=== PATIENT | female | born 1970 | race Caucasian/White ===

== ENCOUNTER 2017-03-03 14:34 | Emergency (ER) | payer MEDICAID, OTHER ==
--- NOTE | 2017-03-03 15:18 | ERNOTE ---
Abdominal HPI - Narrative Date of Service: 03/03/17 - General Chief Complaint: Abdominal Pain Time Seen by Provider: 03/03/17 14:50 Source: patient Exam Limitations: no limitations - Immun/Allergies/Home Medications Immunizatons: IMMUNIZATION HX Immunizations Up to Date No History of Influenza Vaccine No Hx Pneumococcal Vaccination No Allergies/Adverse Reactions: Allergies No Known Allergies Allergy (Verified 03/03/17 14:44) Home Medications: HOME MEDICATIONS Ibuprofen [Motrin] 400 mg PO Q6H PRN 03/03/17 [Last Taken Unknown] Magnesium Hydroxide [Milk Of Magnesia Mint Flavored] 1 ml PO PRN 03/03/17 [Last Taken Unknown] NK [No Home Medication] 03/03/17 [Last Taken Unknown] - History of Present Illness Narrative: Pt. comes in with c/o band-like upper abdominal pain and bloating for a week. Pt. denies any SOB, CP, NVD, fever, recent illness or injury but does state that she has a hx of constipation and also states that she has not had her period in three months. Pt. denies any discharge but states aht she has had night sweats. and today noted that she had difficulty urinating just prior to arrival and noticed that it is pink as well. Timing of problem is over the past few months. Timing: getting worse Quality: moderate, fullness Activities at Onset: none Modifying Factors - (Improves): Present: other - denies Modifying Factors - (Worsens): Present: other - denies Associated Symptoms: Present: diaphoresis, loss of appetite. Absent: fever/ chills, nausea, vomiting Prior Abdominal Problems: Present: none Prior Treatment: Present: other - antacids no relief. Absent: treated by physician, recently hospitalized, currently on antibiotics Review of Systems - Review of Systems Constitutional: Present: diaphoresis, malaise. Absent: fever, chills, weakness , fatigue, decreased activity level EYE: Present: no symptoms reported ENT: Present: no symptoms reported. Absent: nose congestion, nasal drainage, sore throat Respiratory: Present: no symptoms reported. Absent: shortness of breath, cough , wheezing Cardiology: Present: no symptoms reported. Absent: chest pain, palpitations, edema Gastrointestinal/Abdominal: Present: constipation, abdominal pain, eating less, drinking less. Absent: nausea, vomiting, diarrhea Genitourinary: Present: pain, dysuria, hematuria, decreased urinary output Musculoskeletal: Present: back pain - B flank. Absent: joint pain Skin: Present: no symptoms reported. Absent: rash, change in hair/nails Neurological: Present: no symptoms reported. Absent: headache, dizziness/light- headedness, numbness, tingling Endocrine: Present: flushing, unexplained weight loss. Absent: intolerance to cold, increased hunger Hematologic/Lymphatic: Present: no symptoms reported Psych: Present: no symptoms reported All Other Systems: All systems neg except as marked - Patient's Past Medical History Patient History - Medical: No pertinent hx Patient History - Cardiac/Respiratory: No pertinent hx Patient History - Cancer: No Hx of Cancer Patient History - Surgical Procedures: Patient History - Other: None - Social History Living Situations: home Psych History: No pertinent hx Alcohol Use: none Drug Use: none - Immunizations Immunizations Up to Date: No Hx Pneumococcal Vaccination: No History of Influenza Vaccine: No Physical Exam - Physical Exam General Appearance: Present: wd/wn, alert, no apparent distress Head Exam: Present: normal inspection, no evidence of injury Eye Exam: Normal inspection: bilateral, PERRL: bilateral, EOMI: bilateral Ears, Nose, Throat: Present: normal ENT inspection, normal pharynx Neck: Present: normal inspection, nontender, supple, full range of motion. Absent: lymphadenopathy (R), lymphadenopathy (L) Respiratory: Present: no respiratory distress, normal breath sounds, no accessory muscle use, chest nontender, lungs clear Cardiovascular/Chest: Present: regular rate, rhythm, no murmur, normal peripheral pulses Gastrointestinal/Abdominal: Present: normal bowel sounds, no organomegaly, tenderness - BUQ, distended - mild not firm. Absent: rebound, McBurney sign, Obturator sign, Keith sign, Psoas sign, mass, hernia, hepatomegaly Back Exam: Present: normal inspection, normal range of motion, no CVA tenderness , no vertebral tenderness Extremity Exam: Present: normal inspection, non-tender, normal range of motion, no edema Neurological Exam: Present: alert, oriented, normal mood/affect, no motor/ sensory deficits, front desk monitor II-XII nml as tested Skin Exam: Present: normal color, warm/dry. Absent: pallor, skin rash ED Progress - Date and Time Seen: Date and Time: 03/03/17 18:[address] Jayy MENJIVARHC hemoc and he states to get an LDH and Uric acid and if LDH is >300or URic acid >8 then pt. needs emergent workup. 03/03/17 18:[address] Gary and she agrees with plan to transfer pt since LDH is 345 03/03/17 18:40 Discussed with pt. and she would like to have mom drive her to [facility] rather than have Ambulance transport. Discussed risks and had pt. sign AMA 03/03/17 19:[address] Navarrete and he accepts pt. for transfer. - Results and Orders Patient's Lab Results:: I have reviewed the patient's lab results. - Vital Signs Patient's Vital Signs:: I have reviewed the patient's vital signs. Vital Signs: Vital Signs 03/03/17 14:46 Temperature 36.8 C Pulse Rate 102 H Respiratory 16 Rate Blood Pressure 143/90 O2 Sat by Pulse 99 Oximetry - EKG EKG: NSR, nonspecific ST T wave changes EKG read: Reviewed by me EKG Comments: interp by Dr Da Silva - CT/Ultrasound CT/Ultrasound Narrative: CT Abdomen/Pelvis W/O Findings: Exam is limited by noncontrast technique. Lung bases: Images reveal bibasilar dependent atelectasis. ABDOMEN/PELVIS: No evidence of urolithiasis or obstructive uropathy. Limited to assess for renal mass or cyst. Normal course and caliber of the ureters. No bladder calculi. No bladder hematoma. Normal caliber aorta with scattered atherosclerotic changes. There is hepatomegaly with the liver measuring 20 cm in length. There is massive splenomegaly with the spleen measuring 23 cm in length and exhibits mass effect on the left kidney; correlate for a Page kidney. There is pathologic retroperitoneal lymphadenopathy. Atherosclerotic changes are present throughout the normal caliber aorta and branching vessels. No free air. No free fluid. No evidence of bowel obstruction. There is descending colon and sigmoid colon diverticulosis. No evidence of diverticulitis. Small fat- containing umbilical hernia. There are degenerative changes. The exam is otherwise limited by the absence of oral and intravenous contrast. IMPRESSION: No evidence of urolithiasis or obstructive uropathy. Massive splenomegaly with mass effect on the left kidney; correlate for a Page kidney. Pathologic retroperitoneal lymphadenopathy. Correlate for underlying lymphoma. Additional findings and comments are as above. Electronically signed by Wale Knox D.O.. - Progress/Reassessment Chief Complaint: Abdominal Pain Progress:: Unchanged Departure Clinical Impression: Elevated LDH, Splenomegaly, Lymphadenopathy, retroperitoneal, Thrombocytopenia Hematuria Qualifiers: Hematuria type: unspecified type Qualified Code(s): R31.9 - Hematuria, unspecified Anemia Qualifiers: Anemia type: bone marrow failure Bone marrow failure anemia type: unspecified bone marrow failure Qualified Code(s): D61.9 - Aplastic anemia, unspecified - Departure Disposition: [facility] Condition: Serious
[2017-03-03 15:48] LABS: Urine Bilirubin 1 mg/dl (NEGATIVE); Urine Blood 250 /ul (NEGATIVE); Urine Ketone 5 mg/dL (NEGATIVE); Urine Nitrite Negative (NEGATIVE); Urine Protein 30 mg/dL (NEGATIVE); Urine Specific Gravity >=1.030 SP.GR. (1.005-1.010); Urine Urobilinogen Normal (NORMAL); Urine pH 5.5 pH (5.0-7.0)
[2017-03-03 15:54] LABS: ALT 14 U/L (19-67); AST 37 U/L (0-48); Albumin * 3.6 gm/dl (3.4-5.0); Alkaline Phosphatase * 136 U/L (50-170); Amylase * 59 U/L (25-115); Anion Gap 13.8 mmol/L (6.8-13.8); BUN/Creatinine Ratio 8.9 (9.0-21.6); Bilirubin, Total 0.4 mg/dL (0.0-1.1); Blood Urea Nitrogen 10 mg/dL (3-23); Carbon Dioxide 28.5 mmol/L (24-32.6); Chloride 100 mmol/L (97-106); Glucose * 92 mg/dL (70-110); Lipase 160 U/L (73-393); Potassium 4.3 mmol/L (3.4-4.6); Sodium 138 mmol/L (132-142); Total Protein 7.6 gm/dL (6.2-8.2); Troponin I Less than 0.017 ng/ml (0.00-0.10)
[2017-03-03 16:00] LABS: Hematocrit 31.4 % (37.0-47.0); Hemoglobin 9.8 gm/dL (12.5-16.0); Mean Cell Volume 82.4 fl (78-100); Mean Corpuscular Hemoglobin 25.7 pg (27-31); Mean Corpuscular Hgb Conc 31.2 g/dl (32-36); Mean Platelet Volume 8.5 fl (6.0-9.5); Neutrophil # 2.7 K/mm3 (1.3-6.0); Neutrophil % 44.6 % (42-75.0); Platelet Count 119 K/mm3 (150-450); Red Blood Count 3.81 M/mm3 (4.2-5.4); Red Cell Distribution Width 14.9 % (11.5-14.0); White Blood Count 6.1 K/mm3 (4.0-10.5)
[2017-03-03 16:01] LABS: Urine Appearance Cloudy; Urine Bacteria 1+; Urine Color Dark Yellow
[2017-03-03 16:02] LABS: Urine Hyaline Cast 0-5 /LPF
[2017-03-03] MEDS ORDERED: NORMAL SALINE 1,000 ML IV ONE (16:08)
[2017-03-03] MEDS ORDERED: PHENAZOPYRIDINE HCL 100 MG TABLET ONE (16:58)
[2017-03-03 18:05] LABS: Uric Acid 7.1 mg/dL (2.6-7.2)
[2017-03-03] MEDS ORDERED: NORMAL SALINE 1,000 ML IV PRN (18:58)
[2017-03-03] MEDS ORDERED: LORazepam 2 MG/ML DISP.SYRIN IV ONE (19:47)
[2017-03-03] MEDS ORDERED: LORazepam 2 MG/ML DISP.SYRIN ONE (19:48)
[2017-03-03 20:21] LABS: Total Cells Counted 100
[2017-03-03 21:05] LABS: Atypical (Reactive) Lymph 3 % (0-2); Lymphocyte 43 % (20-51); Monocyte 8 % (0-9); Neutrophil 46 % (42-75); Neutrophil # 2.8 K/mm3 (1.3-6.0); Platelet Estimate Decreased (NORMAL)
[2017-03-03 21:07] LABS: Morphology Comment NORMAL
[2017-03-03 21:27] VITALS: BP 138/78
[2017-03-03] MEDS ORDERED: ACETAMINOPHEN 500 MG TABLET PO ONE (21:27)
--- NOTE | 2017-03-06 05:16 | PATHPSR ---
PHYSICIAN: Ade Menard NP LAB#: [id number] SPECIMEN DATE: 03/06/2017 CLINICAL INFORMATION: The patient is a 46-year-old woman who presents with bandlike abdominal pain and bloating for a week. CT scan of abdomen and pelvis shows hepatomegaly, splenomegaly and pathologic retroperitoneal lymphadenopathy. The providers in the emergency room consulted with [facility] who recommended transfer due to elevated LDH (342 U/ L). Peripheral smear review by pathologist ordered to rule out lymphoma. CBC: WBC 6.1 K/mm3, hemoglobin 9.8 gm/dl, hematocrit 31.4 %, MCV is 82.4 fl, MCH is 25.7 pg, MCHC is 31.2 g/dl, Platelet count 119,000. Manual differential: Neutrophils 46 %, bands 0 %, lymphocytes 43 %, monocytes 8 %, eosinophils 0 %, basophils 0 %, atypical reactive lymphocytes 3 %. RED BLOOD CELLS: No abnormalities PLATELETS: No abnormalities WHITE BLOOD CELLS: No abnormalities DIAGNOSIS: PERIPHERAL BLOOD SMEAR, REVIEW BY PATHOLOGIST: -HYPOCHROMIC ANEMIA AND THROMBOCYTOPENIA, SEE COMMENT COMMENT: Peripheral smear review does not help determine the etiology of this patient's significant pathology on CT scan including hepatomegaly, splenomegaly and retroperitoneal lymphadenopathy. Further examination by histology using needle biopsy on the large retroperitoneal lymph nodes would be the next step in the workup. No immature elements or malignancy is identified on our examination. This finding does not exclude a lymphoma or other type of hematopoietic neoplasm.
== END 2017-03-03 21:45 | disposition short-term general hospital (02) ==
LOC: ER 14:34
DX: R31.9 Hematuria, unspecified (principal); D61.9 Aplastic anemia, unspecified; R74.0 Nonspecific elevation of levels of transaminase and lactic acid dehydrogenase [LDH]; R59.1 Generalized enlarged lymph nodes; D69.6 Thrombocytopenia, unspecified